=== PATIENT | male | born 1960 ===

== ENCOUNTER 2022-01-14 18:14 | Inpatient (IN) ==
[2022-01-14] MEDS ORDERED: Al Hydrox/Mg Hydrox/Simet LIQ 30 ML UDC PO PRN (21:27)
[2022-01-14] MEDS ORDERED: Nicotine GUM 2MG FRUIT FLAVOR PO PRN (22:00)
[2022-01-15 08:09] LABS: HDL Cholesterol 39.9 mg/dL
[2022-01-15 08:20] LABS: T4, Total 7.53 mcg/dL (6.09-12.23)
[2022-01-15 08:24] LABS: TSH Ultra Thyroid Stim Horm 7.61 mcIU/mL (0.34-5.60)
[2022-01-15 10:04] LABS: Hematocrit 32 % (42-52); Hemoglobin 11.4 g/dL (14.0-18.0); Mean Corpuscular HGB Conc 35 g/dL (31-36); Mean Corpuscular Hemoglobin 34 pg (27-31); Mean Corpuscular Volume 95 fL (80-94); Platelet Count 294 10^3/uL (150-450); Red Blood Count 3.41 10^6 /uL (4.18-5.48); Red Cell Distribution Width 14 % (10-15); White Blood Count 6.5 10^3/uL (3.5-10.8)
[2022-01-15] MEDS ORDERED: Magnesium Hydroxide LIQ 30 ML UDC PO PRN (10:08)
[2022-01-15] MEDS ORDERED: Senna TAB 8.6 mg TAB PO PRN (10:08)
[2022-01-15 10:11] LABS: Albumin 3.5 g/dL (3.2-5.2); Albumin/Globulin Ratio 1.7 (1-3); Calcium 8.6 mg/dL (8.6-10.3); Globulin 2.1 g/dL (2-4); Potassium 3.9 mmol/L (3.5-5.0); Total Bilirubin 0.5 mg/dL (0.2-1.0); Total Protein 5.6 g/dL (6.4-8.9); eGFR CKD-EPI 91.6 (>60)
[2022-01-15] MEDS: Calcium/Vitamin D TAB 250/125 TAB PO SCH ×2 (11:34→18:34)
[2022-01-15] MEDS: Potassium Chlor 20 meq TAB.ER PO SCH (11:35)
[2022-01-15] MEDS: Vitamin THERAPEUTIC TAB PO SCH (11:35)
[2022-01-15] MEDS: LUBIPROSTONE 8 MCG PO SCH ×2 (16:34→18:42)
[2022-01-16] MEDS: LUBIPROSTONE 8 MCG PO SCH ×2 (07:58→17:12)
[2022-01-16] MEDS: Vitamin THERAPEUTIC TAB PO SCH (10:06)
[2022-01-16] MEDS: Potassium Chlor 20 meq TAB.ER PO SCH (10:07)
[2022-01-16] MEDS: Calcium/Vitamin D TAB 250/125 TAB PO SCH ×2 (10:07→17:12)
[2022-01-16] MEDS: Senna TAB 8.6 mg TAB PO SCH ×4 (10:19→20:49)
[2022-01-17] MEDS: Calcium/Vitamin D TAB 250/125 TAB PO SCH ×2 (08:02→17:20)
[2022-01-17] MEDS: LUBIPROSTONE 8 MCG PO SCH ×2 (08:06→17:21)
[2022-01-17] MEDS: Senna TAB 8.6 mg TAB PO SCH ×2 (08:27→21:11)
[2022-01-17] MEDS: Vitamin THERAPEUTIC TAB PO SCH (08:28)
[2022-01-17] MEDS: Potassium Chlor 20 meq TAB.ER PO SCH (08:28)
[2022-01-17 14:47] LABS: ABS Basophils 0.1 10^3/ul (0-0.2); ABS Eosinophils 0.3 10^3/ul (0-0.6); ABS Lymphocytes 1.6 10^3/ul (1.0-4.8); ABS Monocytes 0.9 10^3/ul (0-0.8); ABS Neutrophils 4.3 10^3/ul (1.5-7.7); Eosinophil % 4.4 %; Hematocrit 32 % (42-52); Hemoglobin 10.7 g/dL (14.0-18.0); Lymphocyte % 22.4 %; Mean Corpuscular HGB Conc 34 g/dL (31-36); Mean Corpuscular Hemoglobin 32 pg (27-31); Mean Corpuscular Volume 93 fL (80-94); Mean Platelet Volume 7.4 fL (7.4-10.4); Nucleated Red Blood Cells % 0.1; Platelet Count 290 10^3/uL (150-450); Red Blood Count 3.41 10^6 /uL (4.18-5.48); Red Cell Distribution Width 14 % (10-15); White Blood Count 7.1 10^3/uL (3.5-10.8)
[2022-01-18] MEDS: LUBIPROSTONE 8 MCG PO SCH ×2 (07:46→17:53)
[2022-01-18] MEDS: Senna TAB 8.6 mg TAB PO SCH ×2 (08:48→21:56)
[2022-01-18] MEDS: Vitamin THERAPEUTIC TAB PO SCH (08:49)
[2022-01-18] MEDS: Potassium Chlor 20 meq TAB.ER PO SCH (08:49)
[2022-01-18] MEDS: Calcium/Vitamin D TAB 250/125 TAB PO SCH ×2 (08:50→17:41)
[2022-01-19 07:36] LABS: ABS Eosinophils 0.4 10^3/ul (0-0.6); ABS Lymphocytes 1.4 10^3/ul (1.0-4.8); ABS Monocytes 0.8 10^3/ul (0-0.8); ABS Neutrophils 4.4 10^3/ul (1.5-7.7); Eosinophil % 5.7 %; Hematocrit 36 % (42-52); Hemoglobin 12.4 g/dL (14.0-18.0); Lymphocyte % 20.2 %; Mean Corpuscular HGB Conc 34 g/dL (31-36); Mean Corpuscular Hemoglobin 32 pg (27-31); Mean Corpuscular Volume 93 fL (80-94); Mean Platelet Volume 6.6 fL (7.4-10.4); Platelet Count 336 10^3/uL (150-450); Red Blood Count 3.87 10^6 /uL (4.18-5.48); Red Cell Distribution Width 14 % (10-15); White Blood Count 7.1 10^3/uL (3.5-10.8)
[2022-01-19 08:16] LABS: CRP High Sensitivity 2.54 mg/L (<2.00)
[2022-01-19 09:00] LABS: Potassium 5.1 mmol/L (3.5-5.0)
[2022-01-19] MEDS: Calcium/Vitamin D TAB 250/125 TAB PO SCH ×2 (09:42→19:04)
[2022-01-19] MEDS: Senna TAB 8.6 mg TAB PO SCH ×2 (09:42→21:41)
[2022-01-19] MEDS: Potassium Chlor 20 meq TAB.ER PO SCH (09:42)
[2022-01-19] MEDS: Vitamin THERAPEUTIC TAB PO SCH (09:43)
[2022-01-19] MEDS: LUBIPROSTONE 8 MCG PO SCH ×2 (09:44→19:04)
[2022-01-19 11:36] LABS: Calcium 9.8 mg/dL (8.6-10.3); Magnesium 2.2 mg/dL (1.9-2.7); eGFR CKD-EPI 90.5 (>60)
[2022-01-19 12:31] LABS: Osmolality Serum 276 mOsm/kg (275-295)
[2022-01-19 13:28] LABS: Urine Chloride Concentration 22 mmol/L; Urine Potassium Concentration 23.2 mmol/L; Urine Sodium Concentration < 18 mmol/L
[2022-01-19 14:58] LABS: Urine Osmo 193 mOsm/kg (150-1150)
[2022-01-20 07:39] LABS: ABS Eosinophils 0.6 10^3/ul (0-0.6); ABS Lymphocytes 1.5 10^3/ul (1.0-4.8); ABS Monocytes 0.8 10^3/ul (0-0.8); ABS Neutrophils 3.2 10^3/ul (1.5-7.7); Eosinophil % 9.3 %; Hematocrit 35 % (42-52); Lymphocyte % 23.8 %; Mean Corpuscular HGB Conc 35 g/dL (31-36); Mean Corpuscular Hemoglobin 32 pg (27-31); Mean Corpuscular Volume 93 fL (80-94); Mean Platelet Volume 6.6 fL (7.4-10.4); Platelet Count 305 10^3/uL (150-450); Red Blood Count 3.71 10^6 /uL (4.18-5.48); Red Cell Distribution Width 14 % (10-15); White Blood Count 6.1 10^3/uL (3.5-10.8)
[2022-01-20 08:34] LABS: Albumin 3.9 g/dL (3.2-5.2); Albumin/Globulin Ratio 1.7 (1-3); Calcium 9.5 mg/dL (8.6-10.3); Globulin 2.3 g/dL (2-4); Magnesium 2.2 mg/dL (1.9-2.7); Total Bilirubin 0.4 mg/dL (0.2-1.0); Total Protein 6.2 g/dL (6.4-8.9); eGFR CKD-EPI 80.3 (>60)
[2022-01-20] MEDS: Calcium/Vitamin D TAB 250/125 TAB PO SCH ×2 (09:38→16:22)
[2022-01-20] MEDS: Senna TAB 8.6 mg TAB PO SCH ×2 (09:40→20:30)
[2022-01-20] MEDS: Vitamin THERAPEUTIC TAB PO SCH (09:40)
[2022-01-20] MEDS: LUBIPROSTONE 8 MCG PO SCH ×2 (09:41→16:21)
[2022-01-21] MEDS: LUBIPROSTONE 8 MCG PO SCH ×2 (07:26→17:22)
[2022-01-21] MEDS: Calcium/Vitamin D TAB 250/125 TAB PO SCH ×2 (07:29→17:11)
[2022-01-21] MEDS: Vitamin THERAPEUTIC TAB PO SCH (07:30)
[2022-01-21] MEDS: Senna TAB 8.6 mg TAB PO SCH (07:40)
[2022-01-22 09:04] LABS: Calcium 9.5 mg/dL (8.6-10.3); Potassium 4.7 mmol/L (3.5-5.0)
[2022-01-22] MEDS: Vitamin THERAPEUTIC TAB PO SCH (10:39)
[2022-01-22] MEDS: Calcium/Vitamin D TAB 250/125 TAB PO SCH ×2 (10:40→17:41)
[2022-01-22] MEDS: LUBIPROSTONE 8 MCG PO SCH ×2 (12:23→17:41)
[2022-01-23] MEDS: Vitamin THERAPEUTIC TAB PO SCH (07:12)
[2022-01-23] MEDS: Calcium/Vitamin D TAB 250/125 TAB PO SCH ×2 (07:13→17:27)
[2022-01-23] MEDS: LUBIPROSTONE 8 MCG PO SCH ×2 (07:13→17:27)
[2022-01-24] MEDS: Vitamin THERAPEUTIC TAB PO SCH (07:39)
[2022-01-24] MEDS: LUBIPROSTONE 8 MCG PO SCH ×2 (07:39→19:25)
[2022-01-24] MEDS: Calcium/Vitamin D TAB 250/125 TAB PO SCH ×2 (07:40→19:24)
[2022-01-25 07:38] LABS: Calcium 9.8 mg/dL (8.6-10.3); Potassium 4.7 mmol/L (3.5-5.0); eGFR CKD-EPI 92.8 (>60)
[2022-01-25] MEDS: Calcium/Vitamin D TAB 250/125 TAB PO SCH ×2 (07:45→18:38)
[2022-01-25] MEDS: LUBIPROSTONE 8 MCG PO SCH ×2 (07:46→18:37)
[2022-01-25] MEDS: Vitamin THERAPEUTIC TAB PO SCH (07:46)
[2022-01-26] MEDS: LUBIPROSTONE 8 MCG PO SCH ×2 (07:53→17:50)
[2022-01-26] MEDS: Vitamin THERAPEUTIC TAB PO SCH (07:54)
[2022-01-26] MEDS: Calcium/Vitamin D TAB 250/125 TAB PO SCH ×2 (09:11→17:50)
[2022-01-27] MEDS: Calcium/Vitamin D TAB 250/125 TAB PO SCH (08:16)
[2022-01-27] MEDS: Vitamin THERAPEUTIC TAB PO SCH (08:17)
[2022-01-27] MEDS: LUBIPROSTONE 8 MCG PO SCH (08:17)
== END 2022-01-27 11:28 | disposition home or self-care (01) | DRG 885 ==
LOC: BSU 20:28
PROVIDERS: ADMIT Psychiatry & Neurology Psychiatry; ATTEND Psychiatry & Neurology Psychiatry